=== PATIENT | female | born 1985 | race Caucasian/White ===

== ENCOUNTER 2024-09-26 08:32 | Emergency (ER) | payer OTHER, SELFPAY ==
--- NOTE | ~2024-09-26 | CT_ITS ---
EXAMINATION: CT CHEST ANGIOGRAPHY WITH IV CONTRAST INDICATION: CP, pleuritic CP COMPARISON: There are no prior studies available for comparison. TECHNIQUE: Helical CT scan of the chest was performed following administration of intravenous contrast (65 mL Omnipaque 350). The contrast bolus was timed to optimally opacify the pulmonary arteries. Thin sections were obtained through the pulmonary arteries. Coronal and sagittal reformatted images were generated. 3D/MIP reconstructed images are also obtained and reviewed. This CT exam was performed with one or more of the following dose reduction techniques: automated exposure control, adjustment of the mA and/or kV according to patient size, use of iterative reconstruction technique. DLP: 266 mGy-cm CHEST: THYROID: The thyroid gland is unremarkable. PULMONARY ARTERIES: No intraluminal filling defects are identified within the pulmonary arteries to suggest pulmonary emboli. LUNGS: There is a mild emphysematous changes at the lung apices. There is patchy airspace and tree-in-bud opacities in the left lower lobe, compatible with early pneumonia. There is associated bronchial wall thickening. There is a 3 mm nodule at the left lung apex (series 5, image 28), and a 4 mm nodule in the left upper lobe abutting the major fissure (series 5, image 39). MEDIASTINUM: There is no mediastinal lymphadenopathy. VINITA: There is no hilar lymphadenopathy. CARDIOVASCULATURE: The heart is normal in size. There is no pericardial effusion. The thoracic aorta is normal in caliber. DEGREE OF CORONARY CALCIFICATION: not evaluable, due to dense contrast material in the coronary arteries PLEURA: There is no pleural effusion. No pneumothorax. MAIN AIRWAYS: The mainstem bronchi and proximal branches are patent. AXILLA: There is no axillary lymphadenopathy. UPPER ABDOMEN: The visualized portions of the liver, spleen, and adrenals are unremarkable. BONES AND SOFT TISSUES: Unremarkable. CT/CT angio chest PE protocol IMPRESSION: 1. No evidence of pulmonary emboli. 2. Findings compatible with early left lower lobe pneumonia. 3. Subcentimeter left upper lobe nodules as described. Please see Fleischner Society guidelines below. Fleischner Criteria for pulmonary nodule follow-up SOLID NODULES: Low risk patient: <6mm: no follow-up 6-8mm: 6 month follow-up CT >8mm: PET/Biopsy/ 3 month follow-up CT High risk patient: <6mm: 12 month follow-up CT 6-8mm: 6 month follow-up CT >8mm: PET/Biopsy/ 3 month follow-up CT SUB-SOLID/GROUNDGLASS NODULES: All patients: > or = 6mm: 6 month follow-up CT *Please note that in patients in the following categories, the Fleischner criteria do not apply: Immunocompromised, lung cancer screening population, age below 35, and patients with known malignancy Electronically signed by: Juancho Fajardo MD 09/26/2024 10:25 AM EDT
[2024-09-26 08:43] VITALS: BP 123/78; PULSE 121; RESP 18; TEMP 35.9; O2SAT 95; BMI 31.8
--- NOTE | 2024-09-26 08:43 | ED_ITS ---
HPI - URI/Sore Throat General Chief Complaint: Dyspnea Stated Complaint: Cough Time Seen by Provider: 09/26/24 08:36 Source: patient and RN notes reviewed Mode of arrival: ambulatory Limitations: no limitations History of Present Illness ED Provider: Renetta Schrader PA-C [facility] Narrative: This is a 38-year-old female, with no known medical problems, who presents emergency department with concerns for cough, congestion, and left-sided rib pain for the last week. Patient also endorsing some shortness of breath, and pleuritic chest pain. Patient reports son is at home sick with similar symptoms for the last 3 weeks. Denies any recent travel, surgery, or hospitalizations. She does report she has a IUD, and is a smoker. Patient denies any fevers, palpitations, abdominal pain, nausea, vomiting or diarrhea. She is a current cigarette smoker, she has been cutting back since her onset of her symptoms (smoking 3-5 cigarettes per day since last week) however states that she has been smoking since she has been 15 years old. Denies taking any medications at home to treat her current symptoms. No other complaints or concerns at this time. MD elicited complaint: cough Onset (ago): day(s) Consistency: constant Severity: moderate Able to tolerate fluids by mouth: Yes Exacerbating factors: nothing Relieving factors: nothing Context: sick contacts Associated symptoms: cough Treatments prior to arrival: none Related Data Previous Rx's ?Medication ?Instructions ?Recorded albuterol sulfate 90 mcg/actuation 2 inh inhalation Q6H PRN shortness 09/26/24 aerosol inhaler of breath or wheezing 30 days #8.5 grams azithromycin 250 mg tablet 250 mg PO DAILY 4 days #4 tabs 09/26/24 nicotine (polacrilex) 2 mg gum 2 mg buccal Q2H #40 ea 09/26/24 nicotine 14 mg/24 hr daily 1 patch transdermal Q24H #14 ea 09/26/24 transdermal patch prednisone 20 mg tablet 40 mg (2 x 20 mg) PO DAILY 4 days 09/26/24 #8 tabs Allergies Allergy/AdvReac Type Severity Reaction Status Date / Time No Known Allergies Allergy Verified 09/26/24 08:45 Review of Systems 2 Review of Systems: Yes all other systems are reviewed and are negative Constitutional: Constitutional: Reports as per [facility] Past Medical History Attestation statement: The following information was validated with the patient. Social History Social History Advance Directives: No Advance Directives Information Provided: Yes Physical Exam 2 Vital Signs: Vital Signs: Last Vital Signs Temp 97.3 F 09/26/24 12:44 Pulse 88 09/26/24 12:44 Resp 18 09/26/24 12:44 BP 98/62 09/26/24 12:44 Pulse Ox 98 09/26/24 12:44 O2 Del Method Room Air 09/26/24 12:44 BMI result Body Mass Index 31.8 Const: General: cooperative, comfortable and no acute distress O rientation/consciousness: patient oriented x3 Limitations: no limitations HEENT: Head: Yes normal to inspection, Yes normocephalic and Yes atraumatic Ears: hearing grossly normal bilaterally General nose exam: Normal external nose present Face and sinus: Yes normal facial exam Mouth: Normal oral and palatal mucosa present, oropharynx normal and moist mucous membranes Throat: Yes posterior oropharynx normal Eyes: General: appearance normal, both eyes and all related structures E yelids: Yes eyelids normal Conjunctivae: conjunctivae normal Sclerae: s clerae normal Pupils: Equal, round and reactive pupils present EOM: EOMs intact bilaterally Neck: Neck: Yes normal visual inspection, Yes full ROM and Yes no lymphadenopathy Lymphatic: no lymphadenopathy noted Chest: Chest palpation & inspection: normal inspection of the chest Resp: Other: Slight expiratory wheeze noted at the bilateral lung tomlinson, no crackles auscultated. Effort & Inspection: normal respiratory effort and able to speak in complete sentences Cardio: Rate: regular rate Rhythm: regular rhythm Heart sounds: S1 normal heart sound present and S2 normal heart sound present GI: Inspection: Yes normal to inspection Skin: General skin exam: no rashes or lesions noted Trauma: no lacerations or abrasions Wounds: no wounds Neuro: General: patient oriented x3 and moves all extremities Cranial nerves: Yes Equal, round and reactive pupils present Extrem: Other: No lower extremity edema. General: Yes normal to inspection Right upper extremity: normal to inspection Left upper extremity: normal to inspection Right lower extremity: normal to inspection Left lower extremity: normal to inspection Course Reevaluation(s) Reevaluation #1: CTA negative for pulmonary emboli. There is findings compatible with early left lower lobe pneumonia. She also has a subcentimeter left upper lobe nodule. Discussed workup with patient. Patient received updraft in department, feeling well. Given that she is no longer tachycardic, she is afebrile, not hypoxic requiring supplemental O2, she was normotensive, with lungs that are are clear to auscultation bilaterally, patient safe for disposition was strict return precautions.. Will discharged on prednisone, antibiotics, inhaler, and nicotine patch per patient's request. Given strict return precautions. She understands and agrees with plan. Patient stable for discharge. Medications Administered Discontinued Medications Generic Name Dose Route Start Last Admin Trade Name Freq PRN Reason Stop Dose Admin Azithromycin 500 mg 09/26/24 11:05 09/26/24 11:55 Azithromycin 500 Mg Tablet PO 09/26/24 11:06 500 mg ONCE ONE Administration Albuterol Sulfate 2.5 mg/ 0 mg 09/26/24 12:23 09/26/24 12:26 Albuterol/Ipratropium 3 ml INHALE 09/26/24 12:24 5 dose ONCE ONE Administration Lactated Ringer's 1,000 mls @ 999 mls/hr 09/26/24 09:53 09/26/24 11:07 Lr IV 09/26/24 10:53 Infused .Q1H1M ONE Infusion Iohexol 100 ml 09/26/24 09:51 09/26/24 09:51 Iohexol 350 Mg/Ml 100 Ml Infus..Btl IV 09/26/24 09:52 65 ml ONCE ONE Administration Prednisone 40 mg 09/26/24 11:05 09/26/24 11:55 Prednisone 20 Mg Tablet PO 09/26/24 11:06 40 mg ONCE ONE Administration Medical Decision Making Medical Decision Making [facility] Narrative: This is a 38-year-old female, with no known medical problems, who presents emergency department with complaints of cough, congestion, and pleuritic chest pain. Patient states that her symptoms started about 1 week ago. She expresses positive sick contacts. On arrival, patient tachycardic at 1:21 a.m.. She is speaking full sentences under no acute distress. Oxygen saturation 95%. She does have slight expiratory wheeze noted at bilateral lung tomlinson. Patient has an IUD and she was a smoker, she does report pleuritic chest pain therefore PE is on the differential. Will obtain labs, viral swabs, CTA, EKG. Patient brought back to a room, and will administer IV fluids. We will continue to closely monitor. Plan: Labs, EKG, CTA, viral swabs, further ER evaluation needed. Differential Diagnosis Differential Diagnoses: The differential diagnosis associated with the presentation includes PE, pneumonia, viral syndrome, pleurisy Admission/Observation Consideration of admission/observation: Escalation of care including admission/observation considered Lab Data MDM Lab Attestation statement: I reviewed the patient's lab results. No leukocytosis, stable H&H, 1st troponin less than 2.7, patient was not . BNP less than 10. Positive influenza A. 09/26/24 09:06 09/26/24 09:06 Labs: Lab Results 09/26/24 Range/Units 09:06 WBC 6.6 (4.8-10.8) X10*3/uL RBC 4.84 (4.20-5.50) X10*6/uL Hgb 14.2 (12.0-16.0) g/dl Hct 42.2 (37.0-47.0) % MCV 87.2 (80.0-98.0) fL MCH 29.3 (27.0-33.0) pg MCHC 33.6 (31.0-35.0) g/dl RDW 13.2 (11.0-16.0) % Plt Count 198 (160-400) X10*3/uL MPV 10.0 (9.4-12.3) fL Immature Gran % (Auto) 0.3 (0.0-0.4) % Neut % (Auto) 67.7 (45-73) % Lymph % (Auto) 20.9 (20-40) % Richardson % (Auto) 8.2 (2-11) % Eos % (Auto) 2.1 (0-4) % Baso % (Auto) 0.8 (0-2) % Lymph # (Auto) 1.4 (1.2-4.9) X10*3/uL Richardson # (Auto) 0.5 (0.1-1.2) X10*3/uL Eos # (Auto) 0.1 (0.0-0.4) X10*3/uL Baso # (Auto) 0.1 (0.0-0.2) X10*3/uL Abs Immat Gran (auto) 0.02 (0.00-0.03) X10*3/uL Absolute Neuts (auto) 4.5 (2.0-8.3) x10*3/uL Absolute Nucleated RBC 0.000 (0.0-0.012) X10*3/uL Nucleated RBC % (auto) 0.0 (0.0-0.2) /100WBC Sodium 141 (135-145) mmol/L Potassium 4.3 (3.3-5.1) mmol/L Chloride 109 H (96-108) mmol/L Carbon Dioxide 24 (22-29) mmol/L Anion Gap 12 (12-20) BUN 12 (9-16) mg/dL Creatinine 0.82 (0.5-1.4) mg/dL Estim Creat Clear Calc 102.3 Estimated GFR > 60 Random Glucose 108 (60-115) mg/dL Lactic Acid 0.9 (0.5-2.0) mmol/L Calcium 9.0 (8.4-10.2) mg/dL Magnesium 2.1 (1.6-2.6) mg/dL Total Bilirubin 0.4 (0.0-1.0) mg/dL Direct Bilirubin 0.1 (0.0-0.5) mg/dL AST 20 (5-31) U/L ALT 11 (0-31) U/L Alkaline Phosphatase 69 (39-117) U/L Troponin I High Sens < 2.7 (<3.5-17.0) ng/L B-Natriuretic Peptide < 10 (<100) pg/mL Total Protein 7.6 (6.5-8.0) g/dL Albumin 4.0 (3.5-5.0) g/dL Beta HCG, Quant < 2 mIU/mL Influenza Type A (PCR) POSITIVE A (Negative) Influenza Type B (PCR) NEGATIVE (Negative) RSV RNA Qual (PCR) NEGATIVE (Negative) SARS-CoV-2 RNA (RT-PCR) NEGATIVE (Negative) Independent Interpretation I performed an independent interpretation of an: EKG Interpretation: EKG 0850 - sinus tachycardic at a ventricular rate of under an 18 beats per minute, AK interval 156, QT QTC to 98/417, no ST elevation or depression. EKG 1056 - normal sinus rhythm at a ventricular rate of 89 beats per minute, no ST elevation or depression. Radiology Impression Discussion of test interpretation with radiology: I have reviewed the radiologist's reading. Radiologist Impression: Report Number: [id number]: Total DLP = 266.00 mGy-cm EXAMINATION: CT CHEST ANGIOGRAPHY WITH IV CONTRAST INDICATION: CP, pleuritic CP COMPARISON: There are no prior studies available for comparison. TECHNIQUE: Helical CT scan of the chest was performed following administration of intravenous contrast (65 mL Omnipaque 350). The contrast bolus was timed to optimally opacify the pulmonary arteries. Thin sections were obtained through the pulmonary arteries. Coronal and sagittal reformatted images were generated. 3D/MIP reconstructed images are also obtained and reviewed. This CT exam was performed with one or more of the following dose reduction techniques: automated exposure control, adjustment of the mA and/or kV according to patient size, use of iterative reconstruction technique. DLP: 266 mGy-cm CHEST: THYROID: The thyroid gland is unremarkable. PULMONARY ARTERIES: No intraluminal filling defects are identified within the pulmonary arteries to suggest pulmonary emboli. LUNGS: There is a mild emphysematous changes at the lung apices. There is patchy airspace and tree-in-bud opacities in the left lower lobe, compatible with early pneumonia. There is associated bronchial wall thickening. There is a 3 mm nodule at the left lung apex (series 5, image 28), and a 4 mm nodule in the left upper lobe abutting the major fissure (series 5, image 39). MEDIASTINUM: There is no mediastinal lymphadenopathy. VINITA: There is no hilar lymphadenopathy. CARDIOVASCULATURE: The heart is normal in size. There is no pericardial effusion. The thoracic aorta is normal in caliber. DEGREE OF CORONARY CALCIFICATION: not evaluable, due to dense contrast material in the coronary arteries PLEURA: There is no pleural effusion. No pneumothorax. MAIN AIRWAYS: The mainstem bronchi and proximal branches are patent. AXILLA: There is no axillary lymphadenopathy. UPPER ABDOMEN: The visualized portions of the liver, spleen, and adrenals are unremarkable. BONES AND SOFT TISSUES: Unremarkable. CT/CT angio chest PE protocol IMPRESSION: 1. No evidence of pulmonary emboli. 2. Findings compatible with early left lower lobe pneumonia. 3. Subcentimeter left upper lobe nodules as described. Please see Fleischner Society guidelines below. Fleischner Criteria for pulmonary nodule follow-up SOLID NODULES: Low risk patient: <6mm: no follow-up 6-8mm: 6 month follow-up CT >8mm: PET/Biopsy/ 3 month follow-up CT High risk patient: <6mm: 12 month follow-up CT 6-8mm: 6 month follow-up CT >8mm: PET/Biopsy/ 3 month follow-up CT SUB-SOLID/GROUNDGLASS NODULES: All patients: > or = 6mm: 6 month follow-up CT *Please note that in patients in the following categories, the Fleischner criteria do not apply: Immunocompromised, lung cancer screening population, age below 35, and patients with known malignancy Electronically signed by: Juancho Fajardo MD 09/26/2024 10:25 AM EDT RP Dictated By: Juancho Fajardo MD Discharge Plan Discharge Clinical Impression: Influenza A, Community acquired pneumonia Patient Disposition: Home, Self-Care Instructions: Influenza (ED), Community Acquired Pneumonia (ED) Additional Instructions: You were seen in the emergency department due to cough and rib pain. Your labs are reassuring. You tested positive for influenza A. Your CT scan of your chest is revealing an early pneumonia. Please take prescribed antibiotic as directed, start this tomorrow as you already received your 1st dose today. Please take prescribed prednisone as directed, start this tomorrow as you already received your 1st dose today. Please use inhaler as needed for shortness for breath. Please follow-up with your primary care physician regarding this visit. If any new or worsening symptoms occur including but not limited to chest pain, shortness of breath, please seek emergent care. Your CT scan also shows a subcentimeter left upper lobe nodule: Subcentimeter left upper lobe nodules as described. Please see Fleischner Society guidelines below. Fleischner Criteria for pulmonary nodule follow-up SOLID NODULES: Low risk patient: <6mm: no follow-up 6-8mm: 6 month follow-up CT >8mm: PET/Biopsy/ 3 month follow-up CT High risk patient: <6mm: 12 month follow-up CT 6-8mm: 6 month follow-up CT >8mm: PET/Biopsy/ 3 month follow-up CT SUB-SOLID/GROUNDGLASS NODULES: All patients: > or = 6mm: 6 month follow-up CT Prescriptions: New albuterol sulfate 90 mcg/actuation HFA aerosol inhaler 2 inh inhalation Q6H PRN (Reason: shortness of breath or wheezing) 30 Days Qty: 8.5 0RF azithromycin 250 mg tablet 250 mg PO DAILY 4 Days Qty: 4 0RF Rx Instructions: start on day 2 of therapy prednisone 20 mg tablet 40 mg PO DAILY 4 Days Qty: 8 0RF Rx Instructions: start 09/27 nicotine 14 mg/24 hr patch 24 hour 1 patch transdermal Q24H Qty: 14 0RF nicotine (polacrilex) 2 mg gum 2 mg buccal Q2H Qty: 40 0RF Referrals: [facility] [Physician] - Interventions: ED Discharge Assessment Last Done: 09/26/24 12:44 Discharge Date/Time: 09/26/24 12:48 Print Language: Zambian
--- NOTE | 2024-09-26 08:44 | ECG_ITS ---
Test Reason : tachycardia Blood Pressure : */* mmHG Vent. Rate : 118 BPM Atrial Rate : 118 BPM P-R Int : 156 ms QRS Dur : 68 ms QT Int : 298 ms P-R-T Axes : 71 50 32 degrees QTcB Int : 417 ms Sinus tachycardia Cannot rule out Anterior infarct , age undetermined ; could be related to body habitus and lead placement Abnormal ECG No previous ECGs available Referred By: Renetta Schrader Electronically Signed By: EDWARD RUANO
[2024-09-26 09:16] LABS: MANUAL DIFF FLAG NO
[2024-09-26 09:18] LABS: Basophils Absolute Auto 0.1 X10*3/uL (0.0-0.2); Basophils Percent Auto 0.8 % (0-2); Eosinophils Absolute Auto 0.1 X10*3/uL (0.0-0.4); Eosinophils Percent Auto 2.1 % (0-4); Hematocrit 42.2 % (37.0-47.0); Hemoglobin 14.2 g/dl (12.0-16.0); Imm Gran Abs Auto 0.02 X10*3/uL (0.00-0.03); Imm Gran Pct Auto 0.3 % (0.0-0.4); Lymphocytes Absolute Auto 1.4 X10*3/uL (1.2-4.9); Lymphocytes Percent Auto 20.9 % (20-40); Mean Corpuscular HGB Conc 33.6 g/dl (31.0-35.0); Mean Corpuscular Hemoglobin 29.3 pg (27.0-33.0); Mean Corpuscular Volume 87.2 fL (80.0-98.0); Monocytes Absolute Auto 0.5 X10*3/uL (0.1-1.2); Monocytes Percent Auto 8.2 % (2-11); Neutrophils Absolute Auto 4.5 x10*3/uL (2.0-8.3); Neutrophils Percent Auto 67.7 % (45-73); Platelet Count 198 X10*3/uL (160-400); Red Blood Count 4.84 X10*6/uL (4.20-5.50); Red Cell Distribution Width 13.2 % (11.0-16.0); White Blood Count 6.6 X10*3/uL (4.8-10.8)
[2024-09-26 09:33] LABS: Alanine Aminotransferase 11 U/L (0-31); Alkaline Phosphatase 69 U/L (39-117); Anion Gap 12 (12-20); Aspartate Amino Transferase 20 U/L (5-31); Bilirubin Direct 0.1 mg/dL (0.0-0.5); Bilirubin Total 0.4 mg/dL (0.0-1.0); Blood Urea Nitrogen 12 mg/dL (9-16); Carbon Dioxide 24 mmol/L (22-29); Chloride 109 mmol/L (96-108); Creatinine Clr Calc Pharmacy 102.3; Estimated Glomerular Filt Rate > 60; Glucose Random 108 mg/dL (60-115); Lactic Acid 0.9 mmol/L (0.5-2.0); Magnesium 2.1 mg/dL (1.6-2.6); Potassium 4.3 mmol/L (3.3-5.1); Sodium 141 mmol/L (135-145); Total Protein 7.6 g/dL (6.5-8.0)
[2024-09-26 09:38] LABS: B Type Natriuretic Peptide < 10 pg/mL (<100)
[2024-09-26 09:41] LABS: HCG Quantitative < 2 mIU/mL; Troponin-I High Sensitivity < 2.7 ng/L (<3.5-17.0)
[2024-09-26] MEDS: iohexoL 350 MG/ML 100 ML INFUS..BTL IV (09:51)
--- OUTSIDE RECORDS SUMMARY | 2024-09-26 10:02 | XMS_ITS | Clinical Summary ---
Author Organization [employer] Address [address] [place] [address] Care Team Providers Care Trim Die Maker Name Role Phone Mike Osborne DDS Unavailable [phone] Social History Tobacco Use Types Packs/Day Years Used Date Smoking Tobacco: Never Assessed Comments Unknown Sex and Gender Information Value Date Recorded Sex Assigned at Choose not to disclose 01/2023 2:04 PM EST Legal Sex Female 8:38 PM EST Gender Identity Choose not to disclose 2:04 PM EST Sexual Orientation Choose not to disclose 2022 2:04 PM EST Plan of Treatment Health Maintenance Due Date Last Done Comments Dental Prophylaxis 1985 Depression Screening 1985 HIV Screening 1985 Lipid Panel 1985 SDOH Screening 1985 Alcohol/Substance Use Screening 1997 Tobacco Screening 1997 Family Planning (PISQ) 2000 Hepatitis C Screening 10/15/2003 Pap Smear 2006 Cervical Cancer Screening 10/15/2015 HPV/Cotest 10/15/2015 Hepatitis B Vaccines (2 of 3 - 19+ 3-dose series) 07/07/2021 06/09/2021 Dental Oral Exam 01/26/2022 07/28/2021, 06/25/2011 Dental X-Ray: Bitewings 07/29/2022 07/28/19 22, 12/03/2010 COVID-19 Vaccine (3 - 2023-2 5 season) 2024 06/22/2021, 06/01/2021 Influenza Vaccine (#1) 2024 , 06/09/2021 Dental X-Ray: Full Mouth 07/29/2024 022, 12/03/2010 DTaP/Tdap/Td Vaccines (2 - T d or Tdap) 07/14/2032 07/14/2022 Zoster Vaccines (1 of 2) 10/15/2035 RSV Patients and Patients Aged 60 years or older (1 - 1-dose 75+ series) 2060 HIB Vaccines Aged Out No longer eligi ble based on patient's age to complete this topic HPV Vaccines Aged Out No longer eligi ble based on patient's age to complete this topic Hepatitis A Vaccines Aged Out No long er eligible based on patient's age to complete this topic IPV Vaccines Aged Out No longer eligi ble based on patient's age to complete this topic Meningococcal Vaccine Aged Out No valerie yuniel eligible based on patient's age to complete this topic Pneumococcal Vaccine: Pediatrics (0 to 5 Years) and At-Risk Patients (6 to 49) Years) Aged Out No longer eligible b ased on patient's age to complete this topic RSV under 20 months Aged Out No longe r eligible based on patient's age to complete this topic Rotavirus Vaccines Aged Out No longer eligible based on patient's age to complete this topic Procedures Procedure Name Priority Date/Time Associated Diagnosis Comments INTRAORAL - COMPLETE SERIES OF RADIOGRAPHIC IMAGES Routine 07/28/2021 12:00 AM EST COMPREHENSIVE ORAL EVALUATION - NEW OR ESTABLISHED PATIENT Routine 07/28/2021 12:00 AM EST from Last 3 Months or Most Recently Relevant to Health Maintenance Insurance [facility] STANDARD DENTAL-[facility] MEDICAID STAND ADULT DENTAL - HSN FULL (MEDICAID) Care Teams Trim Die Maker Relationship Specialty Start Date End Date Mike Osborne [place] [facility] [address] Dentist 06/29/23
--- OUTSIDE RECORDS SUMMARY | 2024-09-26 10:02 | XMS_ITS ---
Author Organization [facility] Address [address] [facility] [address] [place] [address] Care Team Providers Care Relaster Name Role Phone Ivonne Xie Primary Care Provider [phone] REASON FOR VISIT pt has covid Encounters Encounter Location Date Provider Diagnosis [facility] [address] [facility] [place] [address] 09/19/2023 Ivonne Xie Plan Of Treatment No Information Progress Notes * SERGIO RESTREPO LDOB:1985 (37 yo F)Acc No.[id number]:09/19/2023 Patient:?SERGIO RESTREPO :1985???Age:37 Y???Sex:Female Address[address] [place] [place], [address] * true * Date:? Generated for Juanpablo soto/Lupis/eTransmitting on:?09/26/2024 10:02 AM EDT
--- OUTSIDE RECORDS SUMMARY | 2024-09-26 10:02 | XMS_ITS ---
Author Organization [facility] Address [address] [address] Care Team Providers Care Healthcare Educator Name Role Phone Ivonne Xie Primary Care Provider Wilfredo Ramos [phone] REASON FOR VISIT PEA Encounters Encounter Location Date Provider Diagnosis [facility] [address] [place] [address] 09/19/2023 Wilfredo Ramos Plan Of Treatment No Information Progress Notes * SERGIO RESTREPO LDOB:1985 (38 yo F)Acc No.[id number]:09/19/2023 Progress Notes Patient:?SERGIO RESTREPO Provider:Jim Ramos CNP :1985???Age:37 Y???Sex:Female D ate:09/19/2023 [address] [facility] Pcp:Ivonne Xie Subjective: * Chief Complaints: * ???1. PEA. * Medical History:? Objective: * Vitals:? Assessment: Plan: * Treatment: * Care Plan Details* * Electronic signature of Umm Ramos on 09/26/2024 at 10:02 AM EDT Sign off status: Pending * Provider:Jim Ramos CNP Date:? 024 Generated for Juanpablo soto/Fasabinog/eTransmitting on:?09/26/2024 10:02 AM EDT
--- OUTSIDE RECORDS SUMMARY | 2024-09-26 10:02 | XMS_ITS | Patient Health Record ---
Author Organization [facility] Address [address] [facility] [facility] [place] [address] Care Team Providers Care Granite Countertop Installer Name Role Phone RojasIvonne Primary Care Provider Allergies No Known Allergies Reason For Referral No Information Immunizations Vaccine Route Administration Date Status Comme nts Adacel (Tdap) adult purchased IM Intramuscular 09/16/2015 Administered FLU 19YRS through 64 YRS Unknown 06/28/2022 Administere d MMR PURCHASED Unknown 06/28/2022 Administered Social History Tobacco Use: Social History Observation Description Date Details (start date - stop date) Current Smoker NA - NA Do you smoke? Question Answer Notes What is your smoking status? current smoker 1 p pd Are you interested in quitting? Ready to quit Patient counseled on the dangers of tobacco use: 03/25/2023 Problems Problem Type SNOMED Code ICD Code Onset Dates Problem Status W/U Status Risk Notes Problem 59624460 Tobacco dependence (F17.200) Active confirmed Problem 761473731 BMI 36.0-36.9,adult (Z68.36) Active confirmed Plan Of Treatment Pending Test Test Name Order Date PEAK FLOW METER 01/05/2017 Ultrasound : Obstetrical 02/04/2014 Ultrasound : Obstetrical 04/01/2014 Venous duplex scan: Left lower extremity 02/21/2014 Insurance Providers Payer Name Payer Address Payer Phone Subscriber Number Group Number Insured Name Patient Relationship to Insured Coverage Start Date Coverage End Date [facility] [address] [address] [place] [address] [id number] KAYE SERGIO Self - patient is the insured 9 Medications Administered Medication Instructions Date of Administration Dosage Notes Rhogam 05/28/2014 1 mL TB test 07/20/2022 0.10 mL Medical (General) History Medical History History ICD Code smoking Surgical History Surgery Date(Month/Year) Hospitalization History Reason Date(Month/Year) kidney infection
[2024-09-26] MEDS: Lactated Ringers 1,000 ML 999 ML IV (10:06)
[2024-09-26 10:07] LABS: Influenza A PCR POSITIVE (Negative); Influenza B PCR NEGATIVE (Negative); Resp Syncy Virus RNA Qual PCR NEGATIVE (Negative); SARS COV2 PCR INHOUSE NEGATIVE (Negative)
[2024-09-26 10:44] VITALS: BP 95/70; PULSE 91; RESP 18; TEMP 36.2; O2SAT 97
--- NOTE | 2024-09-26 10:52 | ECG_ITS ---
Test Reason : REPEAT Blood Pressure : */* mmHG Vent. Rate : 89 BPM Atrial Rate : 89 BPM P-R Int : 162 ms QRS Dur : 74 ms QT Int : 334 ms P-R-T Axes : 63 34 34 degrees QTcB Int : 406 ms Normal sinus rhythm Low voltage QRS Borderline ECG When compared with ECG of 26-Sep-2024 08:50, No significant change was found Referred By: Renetta Schrader Electronically Signed By: EDWARD RUANO
[2024-09-26] MEDS: predniSONE 20 MG TABLET 40 MG PO (11:55)
[2024-09-26] MEDS: Azithromycin 500 MG TABLET PO (11:55)
[2024-09-26 12:26] VITALS: PULSE 89; RESP 16; O2SAT 98
[2024-09-26] MEDS: Albuterol Sulfate 2.5 MG, Albuterol/Iprat 2.5/0.5MG 3 ML 3 ML INHALE (12:26)
[2024-09-26 12:44] VITALS: BP 98/62; PULSE 88; RESP 18; TEMP 36.3; O2SAT 98
== END 2024-09-26 12:48 | disposition home or self-care (01) ==
PROVIDERS: Physician Assistant Medical; Emergency Provider Emergency Medicine Emergency Medical Services
DX: J10.00 Influenza due to other identified influenza virus with unspecified type of pneumonia (principal); R00.0 Tachycardia, unspecified; R05.9 Cough, unspecified; R06.02 Shortness of breath; F17.210 Nicotine dependence, cigarettes, uncomplicated; Z03.818 Encounter for observation for suspected exposure to other biological agents ruled out
CPT/HCPCS: 0241U; 36415; 71275; 80048; 80076; 83605; 83735; 83880; 84484; 84702; 85025; 87040; 93005; 94640; 96360; 99284; J7120; Q9967

== ENCOUNTER → 2024-09-26 08:44 | Outpatient (BNV) | payer OTHER, SELFPAY | PROVIDERS: Emergency Provider Emergency Medicine Emergency Medical Services; Visit Provider Internal Medicine | DX: R00.0 Tachycardia, unspecified (principal); Z13.6 Encounter for screening for cardiovascular disorders | CPT/HCPCS: 93010 ==

== ENCOUNTER → 2024-09-26 08:47 | Outpatient (BNV) | payer OTHER, SELFPAY | PROVIDERS: Emergency Provider Emergency Medicine Emergency Medical Services; Visit Provider Radiology Diagnostic Radiology | DX: R05.9 Cough, unspecified (principal) | CPT/HCPCS: 71275 ==